=== PATIENT | female | born 1960 | race African-American/Black ===

== ENCOUNTER 2016-04-26 18:55 | Emergency (ER) | payer OTHER ==
[2016-04-26] MEDS ORDERED: TYLENOL ONE (19:45)
[2016-04-26] MEDS ORDERED: TYLENOL PO ONE (19:46)
--- NOTE | 2016-04-27 00:04 | Emergency Department Report ---
ED Headache HPI - General Chief Complaint: Headache Stated Complaint: WEAKNESS /ERON Time Seen by Provider: 04/27/16 00:03 Source: patient, family - History of Present Illness Initial Comments: 55-year-old [place] female accompanied with her son complains of bodyaches fever or chills and a headache for last 2 days. Complains of stuffy nose and runny nose for the same time as her headache. Denies any nausea vomiting abnormal. No chest pain. Timing/Duration: 4-6 hours Quality: mild Head Injury Location: frontal Recent Head Trauma: no recent headache/trauma Modifying Factors: improves with: other (nasal congestion) Associated Symptoms: fatigue, fever/chills, nasal congestion, sinus infection Allergies/Adverse Reactions: Allergies No Known Allergies Allergy (Unverified 04/26/16 19:40) Home Medications: Ambulatory Orders Amoxicillin 500 mg PO TID #30 capsule 04/27/16 Cetirizine HCl [ZyrTEC] 10 mg PO DAILY #30 tab.chew 04/27/16 Diclofenac Sodium 75 mg PO BID #20 tablet. 04/27/16 Oseltamivir [Tamiflu] 75 mg PO BID #10 cap 04/27/16 ED Review of Systems ROS: Stated complaint: WEAKNESS /ERON Other details as noted in HPI Comment: All other systems reviewed and negative Constitutional: denies: chills, fever Eyes: denies: eye pain, eye discharge, vision change ENT: congestion, other (sinus congestion). denies: ear pain, throat pain Respiratory: denies: cough, shortness of breath, wheezing Cardiovascular: as per HPI. denies: chest pain, palpitations Endocrine: no symptoms reported Gastrointestinal: denies: abdominal pain, nausea, diarrhea Genitourinary: denies: urgency, dysuria, discharge Musculoskeletal: denies: back pain, joint swelling, arthralgia Skin: denies: rash, lesions Neurological: headache (bilateral frontal headache). denies: weakness, paresthesias Psychiatric: denies: anxiety, depression Hematological/Lymphatic: denies: easy bleeding, easy bruising ED Past Medical Hx - Past Medical History Previous Medical History?: Yes Hx Hypertension: Yes Additional medical history: high cholesterol - Surgical History Past Surgical History?: No - Social History Smoking Status: Never Smoker Substance Use Type: Non Opiate Pain, Prescribed - Medications Home Medications: Home Medications Medication Instructions Recorded Confirmed Last Taken Type Amoxicillin 500 mg PO TID #30 capsule 04/27/16 Unknown Rx Cetirizine HCl [ZyrTEC] 10 mg PO DAILY #30 tab.chew 04/27/16 Unknown Rx Diclofenac Sodium 75 mg PO BID #20 tablet. 04/27/16 Unknown Rx Oseltamivir [Tamiflu] 75 mg PO BID #10 cap 04/27/16 Unknown Rx ED Physical Exam - General Limitations: Language Barrier General appearance: alert, in no apparent distress - Head Head exam: Present: atraumatic, normocephalic, other (moderate bilateral frontal sinus tenderness) - Eye Eye exam: Present: normal appearance - ENT ENT exam: Present: mucous membranes moist - Neck Neck exam: Present: normal inspection - Respiratory Respiratory exam: Present: normal lung sounds bilaterally. Absent: respiratory distress - Cardiovascular Cardiovascular Exam: Present: regular rate, normal rhythm. Absent: systolic murmur, diastolic murmur, rubs, gallop - GI/Abdominal GI/Abdominal exam: Present: soft, normal bowel sounds - Extremities Exam Extremities exam: Present: normal inspection - Back Exam Back exam: Present: normal inspection - Neurological Exam Neurological exam: Present: alert, oriented X3 - Psychiatric Psychiatric exam: Present: normal affect, normal mood - Skin Skin exam: Present: warm, dry, intact, normal color. Absent: rash ED Course Vital Signs 04/26/16 19:41 Temperature 99 F Pulse Rate 92 H Respiratory 20 Rate Blood Pressure 129/49 Blood Pressure 129/49 [Right] O2 Sat by Pulse 99 Oximetry - Reevaluation(s) Reevaluation #1: Patient felt much better after receiving after receiving shot of Toradol and amoxicillin emergency room. pain is better. Vital signs improved. 04/27/16 00:42 Critical care attestation.: If time is entered above; I have spent that time in minutes in the direct care of this critically ill patient, excluding procedure time. ED Disposition Clinical Impression: Viral syndrome Acute frontal sinusitis Qualifiers: Recurrence: non-recurrent Qualified Code(s): J01.10 - Acute frontal sinusitis, unspecified Disposition: DISCHARGED TO HOME OR SELFCARE Is pt being admited?: No Does the pt Need Aspirin: No Condition: Good Instructions: Sinusitis (ED), Viral Syndrome (ED) Prescriptions: Amoxicillin 500 mg PO TID #30 capsule Cetirizine HCl [ZyrTEC] 10 mg PO DAILY #30 tab.chew Diclofenac Sodium 75 mg PO BID #20 tablet. Oseltamivir [Tamiflu] 75 mg PO BID #10 cap Referrals: PRIMARY CARE, [Primary Care Provider] - 3-5 Days
[2016-04-27] MEDS ORDERED: TORADOL IM ONE (00:09)
[2016-04-27] MEDS ORDERED: TRIMOX PO ONE (00:09)
[2016-04-27 01:10] VITALS: BP 114/73
== END 2016-04-27 01:14 | disposition home or self-care (01) ==
LOC: ED 18:55
DX: J01.10 Acute frontal sinusitis, unspecified (principal); B34.9 Viral infection, unspecified; I10 Essential (primary) hypertension; E78.00 Pure hypercholesterolemia, unspecified
CPT/HCPCS: 93005; 93010; 96372; 99282; J1885

== ENCOUNTER 2019-03-31 09:53 | Emergency (ER) | payer MEDICAID, OTHER ==
[2019-03-31] MEDS ORDERED: IBUPROFEN 800 MG TAB PO ONE (12:15)
--- NOTE | 2019-03-31 12:45 | Emergency Department Report ---
Chief Complaint: High BP Stated Complaint: BP HIGH Time Seen by Provider: 03/31/19 11:44 - HPI History of Present Illness: This is a 58-year-old female with a history of hypertension, and cholesterol who presents to ED today after going to urgent care for elevated blood pressure which she was sent here to be evaluated. Patient does take medication for hypertension and cholesterol. Patient has a primary care doctor which she follows up with regularly. Patient noted that she had an episode of headache intermittent throbbing last night that resolved now - ROS Review of Systems: As noted in HPI - Exam Vital Signs: Vital Signs 03/31/19 09:58 Temperature 98.8 F Pulse Rate 61 Respiratory 16 Rate Blood Pressure 136/70 O2 Sat by Pulse 93 Oximetry Physical Exam: GENERAL: Alert and oriented x3, no apparent distress, Normal Gait, atraumatic. HEAD: Head is normocephalic and a-traumatic. Nontender to palpation EYES: Extra ocular muscles are intact. Pupils are equal, round, and reactive to light and accommodation. LUNGS: Symetrical with respiration, No wheezing, no rales or crackles, CTAB. HEART: S1, S2 present, regular rate and rhythm without murmur, no rubs, no gallops. Non tender to palpation EXTREMITIES/MUSCULOSKELETAL: No cyanosis, clubbing, rash, lesions or edema. Full ROM bilaterally. UE/LE Pulses 2+ bilaterally. LE and UE 5+ strength bilaterally, straight leg raise negative bilaterally NEUROLOGIC: The patient is cooperative with no focal neurologic deficits. SKIN: Warm and dry, No lesions, No ulceration or induration present. MSE screening note: Focused history and physical exam performed. Due to findings the following was ordered: ED Disposition for MSE Clinical Impression: Well-controlled hypertension Disposition: MED SCREENING EXAM-LEFT Is pt being admited?: No Does the pt Need Aspirin: No Condition: Stable Instructions: Chronic Hypertension (ED) Additional Instructions: Make sure to follow up with the primary care physician as discussed. Take all your medications as you've been prescribed. If you have any worsening symptoms or develop new symptoms please return to ED immediately. Prescriptions: amLODIPine 5 mg PO DAILY #30 tab Bisoprolol/Hydrochlorothiazide [Bisoprolol-Hctz 5-6.25 mg Tab] 1 each PO DAILY #30 tablet Referrals: Amanda SUN MD [Primary Care Provider] - 3-5 Days Forms: Work/School Release Form(ED) Time of Disposition: 12:48
[2019-03-31 13:11] VITALS: BP 149/79
== END 2019-03-31 13:09 | disposition left against medical advice (07) ==
LOC: ED 09:53
DX: I10 Essential (primary) hypertension (principal); E78.00 Pure hypercholesterolemia, unspecified; R51 Headache
CPT/HCPCS: 99282

== ENCOUNTER 2020-07-22 09:00 | Emergency (ER) | payer MEDICAID ==
--- NOTE | 2020-07-22 09:14 | Event Note ---
ED Screening Note ED Screening Note: RX NORVASC BISOPROLOL-HCTZ 2.5-6.25 MELOXICAM STATIN FENOFIBRATE PALE DIAPHORETIC WEAK denies cp or sob HR 48 neuro intact This initial assessment/diagnostic orders/clinical plan/treatment(s) is/are subject to change based on patients health status, clinical progression and re- assessment by fellow clinical providers in the ED. Further treatment and workup at subsequent clinical providers discretion. Patient/guardian urged not to elope from the ED as their condition may be serious if not clinically assessed and managed. Initial orders include: ekg labs ua xray
[2020-07-22 10:14] LABS: Basophils % (Auto) 0.8 % (0.0-1.8); Eosinophils # (Auto) 0.2 K/mm3 (0.0-0.4); Hematocrit 38.2 % (30.3-42.9); Hemoglobin 13.1 gm/dl (10.1-14.3); Lymphocytes # (Auto) 1.6 K/mm3 (1.2-5.4); Lymphocytes % (Auto) 26.1 % (13.4-35.0); Mean Corpuscular HGB Conc 34 % (30-34); Mean Corpuscular Volume 93 fl (79-97); Monocytes # (Auto) 0.3 K/mm3 (0.0-0.8); Monocytes % (Auto) 5.7 % (0.0-7.3); Platelet Count 170 K/mm3 (140-440); Red Blood Count 4.13 M/mm3 (3.65-5.03); Red Cell Distribution Width 13.6 % (13.2-15.2)
[2020-07-22 10:20] LABS: INR 1.04 (0.87-1.13)
[2020-07-22 10:21] LABS: Partial Thromboplastin Time 32.6 Sec. (24.2-36.6)
[2020-07-22 10:38] LABS: Alanine Aminotransferase 53 units/L (7-56); Albumin 4.6 g/dL (3.9-5); Blood Urea Nitrogen 14 mg/dL (7-17); Calcium 9.6 mg/dL (8.4-10.2); Hemolysis Index 3
--- NOTE | 2020-07-22 10:42 | XRay Report ---
CHEST 2 VIEWS INDICATION: cp. COMPARISON: None FINDINGS: SUPPORT DEVICES: None. HEART: Within normal limits. LUNGS/PLEURA: Tiny calcified granulomata in the right lung with otherwise clear lungs. No pneumothor ax. ADDITIONAL FINDINGS: None. IMPRESSION: 1. No acute findings. Signer Name: Kingston Olsen MD Signed: 07/22/2020 10:38 AM Workstation Name: [id number]
[2020-07-22 10:45] LABS: BUN/Creatinine Ratio 20
[2020-07-22] MEDS ORDERED: MAGNESIUM SULFATE 2 GM/50 ML BAG IV ONE (10:56)
--- NOTE | 2020-07-22 13:17 | Emergency Department Report ---
ED General Adult HPI - General Chief complaint: High BP Stated complaint: Loss of vision, dizzy, nausea, vomiting and high blood pressure PUI?: No Time Seen by Provider: 07/22/20 13:00 Source: patient, family, RN notes reviewed Mode of arrival: Ambulatory Limitations: Language Barrier - History of Present Illness Initial comments: The patient was evaluated in the emergency department for symptoms described in the history of present illness. He/she was evaluated in the context of the global COVID-19 pandemic, which necessitated consideration that the patient might be at risk for infection with the virus that causes COVID-19. Institutional protocols and algorithms that pertain to the evaluation of patients at risk for COVID-19 are in a state of rapid change based on information released by regulatory bodies including the CDC and federal and state organizations. These policies and algorithms were followed during the patient's care in the emergency department. Please note that these policies, procedures and recommendations changed on a rapid basis. 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 The symptoms started yesterday. The symptoms were painless. These symptoms are essentially resolved. Patient believes her symptoms started at 12:00 PM yesterday. The patient currently denies headache, neck pain, chest pain, abdominal pain, shortness of breath, urinary symptoms, loss of taste and smell. She has no visible complaints at this time. She denies tinnitus and vertigo at this time. -: Sudden Consistency: now resolved Improves with: none Worsens with: none - Related Data Previous Rx's Medication Instructions Recorded Last Taken Type Bisoprolol/Hydrochlorothiazide 1 each PO DAILY #30 tablet 03/31/19 Unknown Rx [Bisoprolol-Hctz 5-6.25 mg Tab] amLODIPine 5 mg PO DAILY #30 tab 03/31/19 Unknown Rx Allergies Allergy/AdvReac Type Severity Reaction Status Date / Time No Known Allergies Allergy Verified 03/31/19 10:01 ED Review of Systems ROS: Stated complaint: HYPERTENSIVE Other details as noted in HPI Constitutional: malaise, weakness, other (Denies loss of taste and smell). denies: fever Eyes: vision change. denies: eye discharge ENT: denies: dental pain, epistaxis Respiratory: denies: cough Cardiovascular: other (Lightheadedness and dizziness). denies: chest pain Gastrointestinal: nausea, vomiting. denies: abdominal pain Genitourinary: denies: dysuria Neurological: weakness, vertigo. denies: headache Hematological/Lymphatic: denies: easy bleeding ED Past Medical Hx - Past Medical History Previous Medical History?: Yes Hx Hypertension: Yes Additional medical history: high cholesterol - Surgical History Past Surgical History?: No - Social History Smoking Status: Never Smoker Substance Use Type: None - Medications Home Medications: Home Medications Medication Instructions Recorded Confirmed Last Taken Type Bisoprolol/Hydrochlorothiazide 1 each PO DAILY #30 tablet 03/31/19 Unknown Rx [Bisoprolol-Hctz 5-6.25 mg Tab] amLODIPine 5 mg PO DAILY #30 tab 03/31/19 Unknown Rx ED Physical Exam - General Limitations: Language Barrier General appearance: alert, in no apparent distress - Head Head exam: Present: atraumatic, normocephalic - Eye Eye exam: Present: normal appearance, PERRL, EOMI, other (Visual acuity intact to finger counting in color perception and a close distance). Absent: nystagmus - ENT ENT exam: Present: normal exam, normal orophraynx, mucous membranes moist, normal external ear exam - Neck Neck exam: Present: normal inspection, full ROM. Absent: tenderness, meningismus - Respiratory Respiratory exam: Present: normal lung sounds bilaterally. Absent: respiratory distress, wheezes, rales, rhonchi, stridor, decreased breath sounds - Cardiovascular Cardiovascular Exam: Present: normal rhythm, bradycardia, normal heart sounds. Absent: tachycardia, irregular rhythm, systolic murmur, diastolic murmur, rubs, gallop - GI/Abdominal GI/Abdominal exam: Present: soft. Absent: distended, tenderness, guarding, rebound, rigid, pulsatile mass - Extremities Exam Extremities exam: Present: normal inspection, full ROM, other (2+ pulses noted in the bilateral upper and lower extremities. There is no palpable cord. negative Homans sign. Muscular compartments are soft. The pelvis is stable.). Absent: pedal edema, calf tenderness - Back Exam Back exam: Present: normal inspection, full ROM. Absent: tenderness, CVA tenderness (R), CVA tenderness (L), paraspinal tenderness, vertebral tenderness - Neurological Exam Neurological exam: Present: alert (There is no past-pointing. There is no pronator drift. [id number] within normal limits bilaterally.), oriented X3, other (No facial droop. Tongue midline. Extraocular movements intact bilaterally. Facial sensation intact to light touch in V1, V2, V3 distribution bilaterally. 5 and a 5 strength in 4 extremities. Sensation intact to light touch in 4 extremities.) - Psychiatric Psychiatric exam: Present: flat affect - Skin Skin exam: Present: warm, dry, intact, normal color. Absent: rash ED Course Vital Signs 07/22/20 09:13 Temperature 98.0 F Pulse Rate 48 L Respiratory 20 Rate Blood Pressure 159/76 [Right] O2 Sat by Pulse 100 Oximetry - Reevaluation(s) Reevaluation #1: 07/22/20 13:58 Differential diagnosis, including but not limited to: Peripheral vertigo, central vertigo, TIA Orthostasis, vagal event, structural cardiac disease Assessment and plan: 60-year-old female currently with a GCS of 15, NIH score of 0, with a complaint of nausea, vomiting, dizziness and blurry/binocular blurry vision and visual loss, now resolved. Given NIH score of 0, symptoms that started over 24 hours ago, which are now resolved, patient not a TPA candidate, and her examination at this time is not suggestive of a large vessel occlusion. She is bradycardic, and normotensive. Laboratory studies unremarkable with the exception of mild hypomagnesemia. EKG nonspecific, with rate of 53. Noncontrast CT scan of the brain ordered. Neurology consultation requested. Have counseled patient and family that we would like to admit this patient for evaluation for possible TIA. Patient and son have articulated understanding. We are currently awaiting results of CT scan, as well as neurology input. 07/22/20 14:43 CT scan of the brain negative for acute findings. Neurology recommendations are reviewed and appreciated. Aspirin ordered. Patient admitted to the service of Dr. Armando Ogden ED Medical Decision Making - Lab Data Result diagrams: 07/22/20 09:35 07/22/20 09:35 Vital Signs 07/22/20 09:13 Temperature 98.0 F Pulse Rate 48 L Respiratory 20 Rate Blood Pressure 159/76 [Right] O2 Sat by Pulse 100 Oximetry Lab Results 07/22/20 07/22/20 07/22/20 Range/Units 09:35 09:35 09:35 WBC 6.1 (4.5-11.0) K/mm3 RBC 4.13 (3.65-5.03) M/mm3 Hgb 13.1 (10.1-14.3) gm/dl Hct 38.2 (30.3-42.9) % MCV 93 (79-97) fl MCH 32 (28-32) pg MCHC 34 (30-34) % RDW 13.6 (13.2-15.2) % Plt Count 170 (140-440) K/mm3 Lymph % (Auto) 26.1 (13.4-35.0) % Douglas % (Auto) 5.7 (0.0-7.3) % Eos % (Auto) 3.0 (0.0-4.3) % Baso % (Auto) 0.8 (0.0-1.8) % Lymph # (Auto) 1.6 (1.2-5.4) K/mm3 Douglas # (Auto) 0.3 (0.0-0.8) K/mm3 Eos # (Auto) 0.2 (0.0-0.4) K/mm3 Baso # (Auto) 0.0 (0.0-0.1) K/mm3 Seg Neutrophils % 64.4 (40.0-70.0) % Seg Neutrophils # 3.9 (1.8-7.7) K/mm3 PT 14.1 (12.2-14.9) Sec. INR 1.04 (0.87-1.13) APTT 32.6 (24.2-36.6) Sec. Sodium 138 (137-145) mmol/L Potassium 3.9 (3.6-5.0) mmol/L Chloride 100.2 (98-107) mmol/L Carbon Dioxide 25 (22-30) mmol/L Anion Gap 17 mmol/L BUN 14 (7-17) mg/dL Creatinine 0.7 (0.6-1.2) mg/dL Estimated GFR > 60 ml/min BUN/Creatinine Ratio 20 % Glucose 144 H (65-100) mg/dL Calcium 9.6 (8.4-10.2) mg/dL Magnesium (1.7-2.3) mg/dL Total Bilirubin 0.70 (0.1-1.2) mg/dL AST 55 H (5-40) units/L ALT 53 (7-56) units/L Alkaline Phosphatase 91 (35-129) units/L Troponin T < 0.010 (0.00-0.029) ng/mL NT-Pro-B Natriuret Pep (0-900) pg/mL Total Protein 7.9 (6.3-8.2) g/dL Albumin 4.6 (3.9-5) g/dL Albumin/Globulin Ratio 1.4 % TSH (0.270-4.200) mlU/mL 07/22/20 07/22/20 07/22/20 Range/Units 09:35 09:35 09:35 WBC (4.5-11.0) K/mm3 RBC (3.65-5.03) M/mm3 Hgb (10.1-14.3) gm/dl Hct (30.3-42.9) % MCV (79-97) fl MCH (28-32) pg MCHC (30-34) % RDW (13.2-15.2) % Plt Count (140-440) K/mm3 Lymph % (Auto) (13.4-35.0) % Douglas % (Auto) (0.0-7.3) % Eos % (Auto) (0.0-4.3) % Baso % (Auto) (0.0-1.8) % Lymph # (Auto) (1.2-5.4) K/mm3 Douglas # (Auto) (0.0-0.8) K/mm3 Eos # (Auto) (0.0-0.4) K/mm3 Baso # (Auto) (0.0-0.1) K/mm3 Seg Neutrophils % (40.0-70.0) % Seg Neutrophils # (1.8-7.7) K/mm3 PT (12.2-14.9) Sec. INR (0.87-1.13) APTT (24.2-36.6) Sec. Sodium (137-145) mmol/L Potassium (3.6-5.0) mmol/L Chloride (98-107) mmol/L Carbon Dioxide (22-30) mmol/L Anion Gap mmol/L BUN (7-17) mg/dL Creatinine (0.6-1.2) mg/dL Estimated GFR ml/min BUN/Creatinine Ratio % Glucose (65-100) mg/dL Calcium (8.4-10.2) mg/dL Magnesium 1.50 L (1.7-2.3) mg/dL Total Bilirubin (0.1-1.2) mg/dL AST (5-40) units/L ALT (7-56) units/L Alkaline Phosphatase (35-129) units/L Troponin T (0.00-0.029) ng/mL NT-Pro-B Natriuret Pep 123.2 (0-900) pg/mL Total Protein (6.3-8.2) g/dL Albumin (3.9-5) g/dL Albumin/Globulin Ratio % TSH 2.990 (0.270-4.200) mlU/mL - EKG Data -: EKG Interpreted by Ne EKG shows normal: sinus rhythm Rate: bradycardia - EKG Data When compared to previous EKG there are: previous EKG unavailable 07/22/20 13:58 EKG interpreted at 09: 2 0 a.m. Sinus rhythm, normal P wave axis, bradycardia, left ventricular hypertrophy, QTC 455 ms. Abnormal EKG. Not a STEMI. No prior for comparison - Radiology Data Radiology results: pending, report reviewed, image reviewed Study Comments Study Comments [facility] [address] [place] [address] Cat Scan Report Signed Patient: RICK DAVENPORT MR#: [id number] 4 : 1960 Acct:[id number] Age/Sex: 60 / F ADM Date: 07/22/20 Loc: ED Attending Dr: Ordering Physician: NATALI DOSS MD Date of Service: 07/22/20 Procedure(s): CT head/brain wo con Accession Number(s): [id number] cc: NATALI DOSS MD CT HEAD WITHOUT CONTRAST INDICATION / CLINICAL INFORMATION: Binocular blurry vision, nausea, vomiting and dizz. TECHNIQUE: All CT scans at this location are performed using CT dose reduction for ALARA by means of automated exposure control. COMPARISON: None available. FINDINGS: HEMORRHAGE: No evidence of intracranial hemorrhage or extra-axial fluid collection. EXTRA-AXIAL SPACES: Cortical sulci, sylvian fissures and basilar cisterns have an unremarkable appearance. VENTRICULAR SYSTEM: The third and lateral ventricles are of normal size and configuration. CEREBRAL PARENCHYMA: No areas of abnormal brain parenchymal attenuation are identified. There is no indication of recent infarc tion. Physiological calcification is seen in the basal ganglia regions bilaterally. MIDLINE SHIFT OR HERNIATION: There is no mass effect. CEREBELLUM / BRAINSTEM: Brainstem and cerebellum have an unremarkable appearance. MIDLINE STRUCTURES:No abnormalities of the pituitary gland or pineal region are identified. INTRACRANIAL VESSELS: Calcified atherosclerotic plaque is present along the course of the cavernous segments of both internal carotid arteries with extension up into the clinoid region on the right. ORBITS: visualized portions of the orbits have an unremarkable appearance. SOFT TISSUES of HEAD: No significant abnormality. CALVARIUM: Evaluation of bone windows reveals no abnormalities. PARANASAL SINUSES / MASTOID AIR CELLS: Visualized portions of the paranasal sinuses are free from inflammatory mucosal disease. Mastoid air cells are normally pneumatized. IMPRESSION: 1. No significant intracranial abnormality. Signer Name: Herbie Sullivan MD Signed: 07/22/2020 2:14 PM Workstation Name: [id number] Transcribed By: Dictated By: Herbie Sullivan MD Electronically Authenticated By: Herbie Sullivan MD Signed Date/Time: 07/22/20 6164 Critical care attestation.: If time is entered above; I have spent that time in minutes in the direct care of this critically ill patient, excluding procedure time. ED Disposition Clinical Impression: TIA (transient ischemic attack), Bradycardia, Hypertension Disposition: OP ADMIT IP TO THIS HOSP Is pt being admited?: Yes Does the pt Need Aspirin: Yes Condition: Good Instructions: Hypertension (ED) Referrals: PRIMARY CARE, [Primary Care Provider] - 3-5 Days - Assessment Assessment Interval: Baseline - Level of Consciousness 1a. Level of Consciousness: alert/keenly responsive - LOC Questions 1b. LOC Questions: answers both correctly - LOC Command 1c. LOC Commands: performs tasks correctly - Best Gaze 2. Best Gaze: normal - Visual 3. Visual: no visual loss - Facial Palsy 4. Facial Palsy: normal symmetrical movement - Motor Arm 5a. Motor Arm Left: no drift 5b. Motor Arm Right: no drift - Motor Leg 6a. Motor Leg Left: no drift 6b. Motor Leg Right: no drift - Limb Ataxia 7. Limb Ataxia: absent - Sensory 8. Sensory: normal - Best Language 9. Best Language: no aphasia - Dysarthria 10. Dysarthria: normal - Extinction and Inattention 11. Extinction/Inattention: no abnormality - Scoring Total Score: 0 Stroke Severity: No Stroke Symptoms
--- NOTE | 2020-07-22 14:18 | Cat Scan Report ---
CT HEAD WITHOUT CONTRAST INDICATION / CLINICAL INFORMATION: Binocular blurry vision, nausea, vomiting and dizz. TECHNIQUE: All CT scans at this location are performed using CT dose reduction for ALARA by means of automated e xposure control. COMPARISON: None available. FINDINGS: HEMORRHAGE: No evidence of intracranial hemorrhage or extra-axial fluid collection. EXTRA-AXIAL SPACES: Cortical sulci, sylvian fissures and basilar cisterns have an unremarkable appear ance. VENTRICULAR SYSTEM: The third and lateral ventricles are of normal size and configuration. CEREBRAL PARENCHYMA: No areas of abnormal brain parenchymal attenuation are identified. There is no i ndication of recent infarction. Physiological calcification is seen in the basal ganglia regions bila terally. MIDLINE SHIFT OR HERNIATION: There is no mass effect. CEREBELLUM / BRAINSTEM: Brainstem and cerebellum have an unremarkable appearance. MIDLINE STRUCTURES:No abnormalities of the pituitary gland or pineal region are identified. INTRACRANIAL VESSELS: Calcified atherosclerotic plaque is present along the course of the cavernous s egments of both internal carotid arteries with extension up into the clinoid region on the right. ORBITS: visualized portions of the orbits have an unremarkable appearance. SOFT TISSUES of HEAD: No significant abnormality. CALVARIUM: Evaluation of bone windows reveals no abnormalities. PARANASAL SINUSES / MASTOID AIR CELLS: Visualized portions of the paranasal sinuses are free from inf lammatory mucosal disease. Mastoid air cells are normally pneumatized. IMPRESSION: 1. No significant intracranial abnormality. Signer Name: Herbie Sullivan MD Signed: 07/22/2020 2:14 PM Workstation Name: [id number]
--- NOTE | 2020-07-22 14:26 | Consultation ---
Medications and Allergies Allergies Allergy/AdvReac Type Severity Reaction Status Date / Time No Known Allergies Allergy Verified 03/31/19 10:01 Home Medications Medication Instructions Recorded Confirmed Last Taken Type Bisoprolol/Hydrochlorothiazide 1 each PO DAILY #30 tablet 03/31/19 Unknown Rx [Bisoprolol-Hctz 5-6.25 mg Tab] amLODIPine 5 mg PO DAILY #30 tab 03/31/19 Unknown Rx Physical Examination - Vital Signs Vital Signs: Vital Signs Temp Pulse Resp BP Pulse Ox 98.0 F 48 L 20 159/76 100 07/22/20 09:13 07/22/20 09:13 07/22/20 09:13 07/22/20 09:13 07/22/20 09:13 Results - Laboratory Findings CBC and BMP: 07/22/20 09:35 07/22/20 09:35 Abnormal Lab Findings: Abnormal Labs 07/22/20 07/22/20 09:35 09:35 Glucose 144 H Magnesium 1.50 L AST 55 H Assessment and Plan [facility] Consult Note # Demographics Consult Type: Acute Stroke Level 1 (0-4.5 hrs) Patient Location: Emergency Room First Name: Rosalee Last Name: Darline Date of : 1960 Age: 60 Gender: Female Time of Initial Page (Eastern Time): 07/22/2020, 13:59 Time of Return Call (Eastern Time): 07/22/2020, 14:07 # HPI History: 60 yo emirati speaking with symptoms of temporary vision loss starting yesterday. Symptoms have since resolved. # Scores Level of Consciousness 1a: [0] = Alert; keenly responsive LOC Questions 1b: [0] = Answers both questions correctly LOC Commands 1c: [0] = Performs both tasks correctly Best Gaze 2: [0] = Normal Visual 3: [0] = No visual loss Facial Palsy 4: [0] = Normal symmetrical movements Motor Arm Left 5a: [0] = No drift Motor Arm Right 5b: [0] = No drift Motor Leg Left 6a: [0] = No drift Motor Leg Right 6b: [0] = No drift Limb Ataxia 7: [0] = Absent Sensory 8: [0] = Normal Best Language 9: [0] = No aphasia Dysarthria 10: [0] = Normal Extinction and Inattention 11: [0] = No abnormality NIHSS Total: 0 # Exam Vitals: Bradycardic SBP: 118 DBP: 70 # PMH-FH-SH Past Medical History: hyperlipidemia hypertension Medications: Amlodipine # Data Time Head CT personally read by me (Eastern Time): 07/22/2020, 14:[address]: no bleed per radiologist read # Assessment Impression: Transient Ischemic Attack Transient vision loss, differential includes TIA. Given time of onset and resolution of symptoms she is not a candidate for IV tap, or intervention. Plan to admit for further workup # Plan Thrombolytic/Intervention: NOT IV Thrombolytic or IA Intervention Thrombolytic Exclusion: > 4.5 hours Target Blood Pressure: SBP < 220 Labs: hemoglobin A1c lipid panel Imaging: (urgency: routine): CT Angiogram Head and CT Angiogram Neck MRI Brain without contrast Diagnostic Test: echo with bubble study Therapy/Evaluation: NPO until swallow evaluation PT/OT evaluation speech/swallow consultation Medication: aspirin 81 mg daily DVT Prophylaxis: SCD chemical DVT prophylaxis Other: LDL < 70 permissive hypertension telemetry monitoring I have discussed my recommendations with the referring provider Disposition: admit # Logistics Telemedicine: Interactive 2 way audio and visual telecommunication technology was utilized during this visit
[2020-07-22] MEDS ORDERED: ASPIRIN 81 MG TAB CHEW PO ONE (14:44)
--- NOTE | 2020-07-22 15:28 | Event Note ---
Date: 07/22/20 Patient seen and evaluated Patient had nausea vomiting and blurred vision The symptoms resolved over a couple of hours During examination no neurologic deficits patient able to walk Patient has 5/5 power in all 4 extremities No visual disturbances Clinical picture not consistent with TIA Discharge diagnosis Transient labyrinthitis #1 Acute gastritis #2 Patient to be discharged on Zofran and Ecotrin
[2020-07-22 16:41] VITALS: BP 128/79
--- NOTE | 2020-07-25 10:34 | Electrocardiograph Report ---
[facility] Test Date: 2020-07-22 Test Time: 09:18:41 Pat Name: RICK DAVENPORT Department: Room: Gender: F Linux System Administrator: ANGEL : 1960 Requested By: PAULINE CANALES Order Number: [id number] Reading MD: Alvin Fair Measurements Intervals [place] Rate: 53 P: 26 MT: 166 QRS: 59 QRSD: 84 T: 51 QT: 482 QTc: 455 Interpretive Statements Sinus bradycardia No previous ECG available for comparison Electronically Signed On 07-25-2020 10:33:44 EDT by Alvin Fair
== END 2020-07-22 16:30 | disposition home or self-care (01) ==
LOC: ED 09:00
DX: I10 Essential (primary) hypertension (principal); G45.9 Transient cerebral ischemic attack, unspecified; R00.1 Bradycardia, unspecified; E78.00 Pure hypercholesterolemia, unspecified; Z79.899 Other long term (current) drug therapy
CPT/HCPCS: 36415; 70450; 71046; 80053; 83735; 83880; 84443; 84484; 85025; 85610; 85730; 93005; 96365; 99284; J3475